=== PATIENT | female | born 1980 | race Caucasian/White ===

== ENCOUNTER 2019-09-15 19:04 | Emergency (ER) | payer MEDICAID, OTHER ==
[~2019-09-15] VITALS: Ht 149.9 cm; Wt 52.3 kg
[~2019-09-15 19:04] MED LIST: NOCURR
[2019-09-15 20:03] LABS: GLUCOSE,POINT OF CARE 462 MG/DL (70-110)
[2019-09-15] MEDS ORDERED: METF500S7 PO (20:07)
[2019-09-15] MEDS ORDERED: SODIUM CHLORIDE 0.9% 1,000 ML IV ONE ×2 (20:30→21:30)
[2019-09-15 21:04] LABS: BASOPHILS % (AUTO) 0.6 % (0.0-2.0); HEMATOCRIT 35.2 % (36-46); HEMOGLOBIN 11.9 g/dL (12.0-16.0); LYMPHOCYTES # (AUTO) 4.1 K/uL (1.0-4.8); LYMPHOCYTES % (AUTO) 36.5 % (22.0-44.0); MEAN CORPUSCULAR HEMOGLOBIN 29.8 pg (26.0-34.0); MEAN CORPUSCULAR HGB CONC 33.7 G/dL (31.0-37.0); MEAN CORPUSCULAR VOLUME 89 fL (80-100); MONOCYTES # (AUTO) 0.7 K/uL (0.1-1.0); MONOCYTES % (AUTO) 6.1 % (2.0-9.0); NEUTROPHILS # (AUTO) 6.2 K/uL (1.8-7.7); NEUTROPHILS % (AUTO) 54.8 % (40.0-70.0); PLATELET COUNT (AUTO) 409 K/uL (150-450); RED BLOOD CELL COUNT(AUTO) 3.98 MIL/uL (4.00-5.20); RED CELL DISTRIBUTION WIDTH 12.8 % (11.5-14.5)
[2019-09-15 21:22] LABS: APPEARANCE,URINE CLEAR (CLEAR); BILIRUBIN,URINE NEGATIVE (NEGATIVE); GLUCOSE, URINE (UA) >=1000 mg/dL (NEGATIVE); KETONES,URINE TRACE mg/dL (NEGATIVE); LEUKOCYTE ESTERASE ,URINE NEGATIVE (NEGATIVE); NITRATE,URINE NEGATIVE (NEGATIVE); OCCULT BLOOD,URINE TRACE (NEGATIVE); PROTEIN,URINE SEE CONFIRM (NEGATIVE); UROBILINOGEN,URINE 0.2 mg/dL (<=1.0)
[2019-09-15 21:31] LABS: ALANINE AMINOTRANSFERASE 14 U/L (12-78); ALBUMIN 1.8 g/dL (3.4-5.0); ALKALINE PHOSPHATASE 80 U/L (46-116); ANION GAP 8 mmol/L (8-16); ASPARTATE AMINOTRANSFERASE 12 U/L (15-37); BILIRUBIN,TOTAL 0.1 mg/dL (0.1-1.0); CALCIUM, TOTAL 8.4 mg/dL (8.8-10.5); CARBON DIOXIDE 26 mmol/L (22-29); CHLORIDE 103 mmol/L (98-107); GLOMERULAR FILTR. RATE CALC > 60 mL/min (>60); POTASSIUM 3.6 mmol/L (3.5-5.1); SODIUM SERUM 137 mmol/L (136-145); TOTAL PROTEIN, SERUM 5.8 g/dL (6.4-8.2)
[2019-09-15 21:33] LABS: BACTERIA,URINE None Seen /HPF (None Seen); SQUAMOUS EPITHELIAL CELL,UR Moderate /LPF (None Seen); SULFOSALICYLIC ACID,URINE 4+ (Negative)
[2019-09-15 21:36] LABS: GLUCOSE,RANDOM 494 mg/dL (70-110)
[2019-09-15 21:43] LABS: UREA NITROGEN, BLOOD 19 mg/dL (7-18)
[2019-09-16] MEDS ORDERED: INSULIN REGULAR, HUMAN 100 UNITS/ML SQ ONE (01:15)
[2019-09-16] MEDS ORDERED: CefTRIAXone SODIUM 1 GM/VIAL IM ONE (01:15)
[2019-09-16] MEDS ORDERED: CEPHALEXIN MONOHYDRATE 500 MG CAPSULE PO ONE (01:15)
[2019-09-16] MEDS ORDERED: MetroNIDAZOLE 500 MG TABLET PO ONE (01:15)
[2019-09-16] MEDS ORDERED: AZITHROMYCIN 250 MG TABLET PO ONE (01:15)
[2019-09-16 01:33] LABS: GLUCOSE,POINT OF CARE 309 MG/DL (70-110)
[2019-09-16 02:13] VITALS: BP 130/80
== END 2019-09-16 02:16 | disposition home or self-care (01) ==
LOC: EMS 19:06
DX: N76.0 Acute vaginitis (principal); N39.0 Urinary tract infection, site not specified; E11.9 Type 2 diabetes mellitus without complications; Z79.84 Long term (current) use of oral hypoglycemic drugs
CPT/HCPCS: 36415; 80053; 81001; 81002; 81025; 82962; 83735; 85025; 87086; 87210; 87491; 87591; 96372; 99283; J0696; J1815; J7030

== ENCOUNTER 2021-04-29 11:49 | Emergency (ER) | payer OTHER ==
[~2021-04-29] VITALS: Ht 157.5 cm; Wt 59.1 kg
[~2021-04-29 11:49] MED LIST changes: +METF500S7 PO; -NOCURR
[2021-04-29 12:56] LABS: BASOPHILS % (AUTO) 0.3 % (0.0-2.0); EOSINOPHILS % (AUTO) 0.1 % (1.0-6.0); HEMATOCRIT 33.5 % (36-46); HEMOGLOBIN 10.9 g/dL (12.0-16.0); LYMPHOCYTES # (AUTO) 1.7 K/uL (1.0-4.8); LYMPHOCYTES % (AUTO) 19.1 % (22.0-44.0); MEAN CORPUSCULAR HEMOGLOBIN 28.6 pg (26.0-34.0); MEAN CORPUSCULAR HGB CONC 32.6 G/dL (31.0-37.0); MEAN CORPUSCULAR VOLUME 88 fL (80-100); MONOCYTES # (AUTO) 0.7 K/uL (0.1-1.0); MONOCYTES % (AUTO) 7.4 % (2.0-9.0); NEUTROPHILS # (AUTO) 6.6 K/uL (1.8-7.7); NEUTROPHILS % (AUTO) 73.1 % (40.0-70.0); PLATELET COUNT (AUTO) 235 K/uL (150-450); RED BLOOD CELL COUNT(AUTO) 3.82 MIL/uL (4.00-5.20); RED CELL DISTRIBUTION WIDTH 13.2 % (11.5-14.5)
[2021-04-29 13:09] LABS: ANION GAP 7 mmol/L (8-16); CALCIUM, TOTAL 7.5 mg/dL (8.8-10.5); CARBON DIOXIDE 25 mmol/L (22-29); CHLORIDE 103 mmol/L (98-107); CREATININE 2.54 mg/dL (0.60-1.30); GLOMERULAR FILTR. RATE CALC 21 mL/min (>60); GLUCOSE,RANDOM 260 mg/dL (70-110); POTASSIUM 4.4 mmol/L (3.5-5.1); SODIUM SERUM 135 mmol/L (136-145); UREA NITROGEN, BLOOD 38 mg/dL (7-18)
[2021-04-29 13:34] LABS: ALANINE AMINOTRANSFERASE 17 U/L (12-78); ALBUMIN 1.4 g/dL (3.4-5.0); ALKALINE PHOSPHATASE 98 U/L (46-116); ASPARTATE AMINOTRANSFERASE 21 U/L (15-37); BILIRUBIN,TOTAL 0.2 mg/dL (0.1-1.0); CREATINE KINASE, TOTAL ONLY 97 U/L (26-192); HCG,QUANTITATIVE < 1 mIU/mL (0-6); TOTAL PROTEIN, SERUM 6.3 g/dL (6.4-8.2)
[2021-04-29] MEDS ORDERED: SODIUM CHLORIDE 0.9% 1,000 ML IV ONE (13:45)
[2021-04-29 13:54] LABS: B-TYPE NATRIURETIC PEPTIDE 147 pg/mL (0-100)
[2021-04-29 14:42] LABS: COVID AG,FIA SOURCE NASOPHARYNGEAL
[2021-04-29 15:27] LABS: APPEARANCE,URINE CLOUDY (CLEAR); BILIRUBIN,URINE NEGATIVE (NEGATIVE); GLUCOSE, URINE (UA) 250 mg/dL (NEGATIVE); KETONES,URINE NEGATIVE (NEGATIVE); LEUKOCYTE ESTERASE ,URINE NEGATIVE (NEGATIVE); NITRATE,URINE NEGATIVE (NEGATIVE); OCCULT BLOOD,URINE SMALL (NEGATIVE); PROTEIN,URINE SEE CONFIRM (NEGATIVE); UROBILINOGEN,URINE 0.2 mg/dL (<=1.0)
[2021-04-29 15:36] LABS: SULFOSALICYLIC ACID,URINE 3+ (Negative)
[2021-04-29 15:41] LABS: AMORPHOUS SEDIMENT,UR Moderate /LPF (None Seen); BACTERIA,URINE Few /HPF (None Seen); SQUAMOUS EPITHELIAL CELL,UR Moderate /LPF (None Seen)
[2021-04-29 16:00] VITALS: BP 155/87
== END 2021-04-29 16:48 | disposition home or self-care (01) ==
LOC: EMS 11:51
DX: U07.1 COVID-19 (principal); E11.22 Type 2 diabetes mellitus with diabetic chronic kidney disease; N18.9 Chronic kidney disease, unspecified; Z79.84 Long term (current) use of oral hypoglycemic drugs
CPT/HCPCS: 36415; 71045; 76700; 80053; 81001; 82550; 82962; 83880; 84484; 84702; 85025; 87426; 93005; 96360; 99285; J7030; 81002

== ENCOUNTER 2024-07-30 19:06 | Emergency (ER) | payer MEDICARE, OTHER ==
[~2024-07-30] VITALS: Ht 149.9 cm; Wt 95.0 kg
[~2024-07-30 19:06] MED LIST changes: -METF500S7 PO; +METF500S9 PO
[2024-07-30 20:56] LABS: BASOPHILS % (AUTO) 0.6 % (0.0-2.0); EOSINOPHILS % (AUTO) 2.9 % (1.0-6.0); HEMATOCRIT 35.8 % (36-46); HEMOGLOBIN 11.8 g/dL (12.0-16.0); LYMPHOCYTES # (AUTO) 1.1 K/uL (1.0-4.8); LYMPHOCYTES % (AUTO) 16.3 % (22.0-44.0); MEAN CORPUSCULAR HGB CONC 32.8 G/dL (31.0-37.0); MEAN CORPUSCULAR VOLUME 104 fL (80-100); MONOCYTES # (AUTO) 0.9 K/uL (0.1-1.0); MONOCYTES % (AUTO) 12.8 % (2.0-9.0); NEUTROPHILS # (AUTO) 4.7 K/uL (1.8-7.7); NEUTROPHILS % (AUTO) 67.4 % (40.0-70.0); PLATELET COUNT (AUTO) 187 K/uL (150-450); RED BLOOD CELL COUNT(AUTO) 3.46 MIL/uL (4.00-5.20); RED CELL DISTRIBUTION WIDTH 15.4 % (11.5-14.5)
[2024-07-30 21:13] LABS: CALCIUM, TOTAL 9.3 mg/dL (8.8-10.5); CREATININE 4.27 mg/dL (0.60-1.30); POTASSIUM 3.6 mmol/L (3.5-5.1)
[2024-07-30 21:20] LABS: ALBUMIN 2.8 g/dL (3.4-5.0); BILIRUBIN,DIRECT 0.3 mg/dL (0.00-0.20); BILIRUBIN,TOTAL 0.6 mg/dL (0.1-1.0); TOTAL PROTEIN, SERUM 7.4 g/dL (6.4-8.2)
[2024-07-30] MEDS ORDERED: CeFAZolin SODIUM 1 GM VIAL IM ONE (23:00)
[2024-07-30] MEDS: TraMADol HCL 50 MG TABLET PO ONE (23:09)
[2024-07-30] MEDS: CLINDAMYCIN PHOS 150 MG/ML 4 ML VIAL IM ONE (23:09)
[2024-07-31 00:53] VITALS: BP 126/73; PULSE 82; RESP 16; TEMP 97.9; O2SAT 97
[2024-07-31] MEDS ORDERED: CLIN-142 PO (01:18)
== END 2024-07-31 01:44 | disposition home or self-care (01) ==
LOC: EMS 19:06
DX: S90.412A Abrasion, left great toe, initial encounter (principal); E11.22 Type 2 diabetes mellitus with diabetic chronic kidney disease; N18.6 End stage renal disease; Z99.2 Dependence on renal dialysis; Z79.84 Long term (current) use of oral hypoglycemic drugs; X58.XXXA Exposure to other specified factors, initial encounter; Y93.89 Activity, other specified; Y92.89 Other specified places as the place of occurrence of the external cause; Y99.8 Other external cause status
CPT/HCPCS: 99284; 80048; 80076; 85025; 36415; 73630; 82962; 96372; J0690; J3490